=== PATIENT | male | born 1950 | race Caucasian/White ===

== ENCOUNTER 2020-03-06 19:56 | Observation (INO) | payer MEDICARE ==
[2020-03-06] MEDS ORDERED: Iodixanol* (CONTRAST) 320 MG/ML 100 ML SDV IV ONE (22:20)
[2020-03-06 22:36] LABS: ABS Eosinophils 0.1 10^3/ul (0-0.6); ABS Lymphocytes 1.4 10^3/ul (1.0-4.8); ABS Monocytes 0.5 10^3/ul (0-0.8); ABS Neutrophils 3.8 10^3/ul (1.5-7.7); Eosinophil % 1.7 %; Hematocrit 41 % (42-52); Hemoglobin 14.4 g/dL (14.0-18.0); Lymphocyte % 23.3 %; Mean Corpuscular HGB Conc 35 g/dL (31-36); Mean Corpuscular Hemoglobin 33 pg (27-31); Mean Corpuscular Volume 96 fL (80-94); Mean Platelet Volume 8.3 fL (7.4-10.4); Platelet Count 177 10^3/uL (150-450); Red Cell Distribution Width 13 % (10-15); White Blood Count 5.9 10^3/uL (3.5-10.8)
[2020-03-06 22:51] LABS: INR 1.04 (0.82-1.09)
[2020-03-06 22:52] LABS: Albumin 4.3 g/dL (3.2-5.2); Albumin/Globulin Ratio 1.6 (1-3); BUN/Creatinine Ratio 20.9 (8-20); Calcium 9.4 mg/dL (8.6-10.3); EGFR Non-African American 88.4 (>60); Globulin 2.7 g/dL (2-4); Potassium 3.9 mmol/L (3.5-5.0); Total Bilirubin 0.5 mg/dL (0.2-1.0)
--- NOTE | 2020-03-06 22:59 | ED ---
Neurological HPI - HPI Summary HPI Summary: 69 year old M presenting to [facility] via private car with a chief complaint of visual and speech impairment since earlier today. Patient states that at 1700, patient experienced a sharp dizzy spell after going on a routine 3-5 mile walk, during which he felt normal. Shortly after, patient began using his computer to look at [employer] numbers when he began seeing flashes primarily the right side of his vision. He states that his right side also looked strange. Patient states that he could not read 4-5 digit numbers but was not clear as to if it was due to a visual issue or if the sun was getting in his way. His symptoms subsided after 20 minutes. Afterwards, patient was having a conversation when he could not remember the name of the road near his house. Patient states that his symptoms subsided afterwards. Later, when the patient was talking to his after dinner, he was not able to find the words to describe what he wanted to talk about. Patients states that the patient could not find the word that he wanted to use, however he was not talking gibberish and seemed to understand what she was saying. Patients speech returned to normal afterwards. Patient denies difficulty with ambulation and extremity weakness. Patient reports experiencing a headache earlier. Patient denies having a Hx of stroke or seizure but has a history of neuropathy. Home Medications Medication Instructions Recorded Confirmed Type Cholecalciferol TAB* [Vitamin D 1,000 unit PO DAILY 03/07/20 03/07/20 History TAB*] Iron 18 mg PO DAILY 03/07/20 03/07/20 History Multivitamin [Multivitamins] 1 cap PO DAILY 03/07/20 03/07/20 History - History of Current Complaint Chief Complaint: EDHeadache Stated Complaint: INCREASED DIZZY SPELLS/VISON CHANGES PER PT Time Seen by Provider: 03/06/20 22:00 Hx Obtained From: Patient Onset/Duration: Started hours ago Current Severity: Mild Pain Intensity: 3 Pain Scale Used: 0-10 Numeric Character: Dizzy - Sharp dizzy spell., Sharp - Sharp dizzy spell., Impaired Speech, Visual Changes - Could not read 4-5 digit numbers. Associated Signs and Symptoms: Positive: Visual Changes, Headache, Impaired Speech. Negative: Weakness - Allergy/Home Medications Allergies/Adverse Reactions: Allergies Allergy/AdvReac Type Severity Reaction Status Date / Time No Known Allergies Allergy Verified 04/30/13 15:15 Home Medications: Home Medications Aspirin 81 mg CHEW TAB* 81 mg PO DAILY #30 tab.chew 03/07/20 [Rx] Atorvastatin* [Lipitor 20 MG*] 20 mg PO 2100 #30 tab 03/07/20 [Rx] Cholecalciferol TAB* [Vitamin D TAB*] 1,000 unit PO DAILY 03/07/20 [History Confirmed 03/07/20] Clopidogrel TAB* [Plavix TAB*] 75 mg PO DAILY #21 tab 03/07/20 [Rx] Iron 18 mg PO DAILY 03/07/20 [History Confirmed 03/07/20] Multivitamin [Multivitamins] 1 cap PO DAILY 03/07/20 [History Confirmed 03/07/20 ] PMH/Surg Hx/FS Hx/Imm Hx Endocrine/Hematology History: Denies: Hx Diabetes Cardiovascular History: Denies: Hx Hypertension, Hx Pacemaker/ICD Musculoskeletal History: Denies: Hx Rheumatoid Arthritis, Hx Osteoporosis Sensory History: Denies: Hx Hearing Aid Neurological History: Reports: Hx Peripheral Neuropathy Psychiatric History: Denies: Hx Panic Disorder - Cancer History Cancer Type, Location and Year: SKIN 2009 - Surgical History Surgery Procedure, Year, and Place: RT KNEE, ATHLETIC PUBALGIA SURGERY, APPENDECTOMY, RT HAND INDEX FINGER MISSING THE LAST JOINT Infectious Disease History: No Infectious Disease History: Denies: Traveled Outside the [place] in Last 30 Days - Family History Known Family History: Positive: Other - Prostate cancer, throat cancer, breast cancer, [place]. - Social History Alcohol Use: Daily Alcohol Amount: 1 drink/day Substance Use Type: Reports: None Smoking Status (MU): Never Smoked Tobacco Review of Systems Positive: Other - Sharp dizzy spell. Positive: Other - Visual changes, patient experienced flashes. Neurological/Mental Status: Other - Patient unable to read large numbers and had trouble remember the name of a road near his house. Positive: Headache. Negative: Weakness - Patient denies trouble walking, moving arms, moving legs. All Other Systems Reviewed And Are Negative: Yes Physical Exam - Summary Physical Exam Summary: Appearance: Well-appearing, Well-nourished, lying in bed comfortably Skin: Warm, dry, no obvious rash Eyes: sclera anicteric, no conjunctival pallor HENT: mucous membranes moist, pharynx appears normal Neck: Supple, nontender Respiratory: Clear to auscultation, no signs of respiratory distress Cardiovascular: Normal S1, S2. No murmurs. Normal distal pulses in tibial and radial bilaterally. Abdomen: Soft, nontender, normal active bowel sounds present Musculoskeletal: Normal, Strength/ROM Intact Neurological: A&Ox3, awake and alert, mentation is normal, speech is fluent and appropriate, Level of consciousness nml. The patient is alert and oriented. Cranial nerves are grossly intact. Gaze is conjugate and without nystagmus. Peripheral vision is intact to confrontation. There are no gross sensory abnormalities to light touch. There is no truncal or fine motor ataxia. Gait is normal. GCS 15. NIH 0. Psychiatric: affect is normal, does not appear anxious or depressed Triage Information Reviewed: Yes Vital Signs On Initial Exam: Initial Vitals Temp Pulse Resp BP Pulse Ox 98 F 56 18 114/73 100 03/06/20 20:11 03/06/20 20:11 03/06/20 20:11 03/06/20 20:11 03/06/20 20:11 Vital Signs Reviewed: Yes - Henri Coma Scale Best Eye Response: 4 - Spontaneous Best Motor Response: 6 - Obeys Commands Best Verbal Response: 5 - Oriented Coma Scale Total: 15 Procedures - Sedation Patient Received Moderate/Deep Sedation with Procedure: No Diagnostics - Vital Signs Vital Signs Temp Pulse Resp BP Pulse Ox 03/06/20 22:00 47 18 99 03/06/20 21:50 42 98 03/06/20 21:49 43 126/77 98 03/06/20 20:11 98 F 56 18 114/73 100 - Laboratory Lab Results: Lab Results 03/06/20 03/06/20 03/06/20 Range/Units 22:25 22:25 22:25 WBC 5.9 (3.5-10.8) 10^3/uL RBC 4.30 (4.18-5.48) 10^6 /uL Hgb 14.4 (14.0-18.0) g/dL Hct 41 L (42-52) % MCV 96 H (80-94) fL MCH 33 H (27-31) pg MCHC 35 (31-36) g/dL RDW 13 (10-15) % Plt Count 177 (150-450) 10^3/uL MPV 8.3 (7.4-10.4) fL Neut % (Auto) 65.1 % Lymph % (Auto) 23.3 % Sanders % (Auto) 9.1 % Eos % (Auto) 1.7 % Baso % (Auto) 0.8 % Absolute Neuts (auto) 3.8 (1.5-7.7) 10^3/ul Absolute Lymphs (auto) 1.4 (1.0-4.8) 10^3/ul Absolute Monos (auto) 0.5 (0-0.8) 10^3/ul Absolute Eos (auto) 0.1 (0-0.6) 10^3/ul Absolute Basos (auto) 0.0 (0-0.2) 10^3/ul Absolute Nucleated RBC 0.0 10^3/ul Nucleated RBC % 0.0 INR (Anticoag Therapy) 1.04 (0.82-1.09) Sodium 135 (135-145) mmol/L Potassium 3.9 (3.5-5.0) mmol/L Chloride 99 L (101-111) mmol/L Carbon Dioxide 30 (22-32) mmol/L Anion Gap 6 (2-11) mmol/L BUN 18 (6-24) mg/dL Creatinine 0.86 (0.67-1.17) mg/dL Est GFR ( Amer) 107.0 (>60) Est GFR (Non-Af Amer) 88.4 (>60) BUN/Creatinine Ratio 20.9 H (8-20) Glucose 92 (70-100) mg/dL Calcium 9.4 (8.6-10.3) mg/dL Total Bilirubin 0.50 (0.2-1.0) mg/dL AST 26 (13-39) U/L ALT 21 (7-52) U/L Alkaline Phosphatase 69 (34-104) U/L Total Protein 7.0 (6.4-8.9) g/dL Albumin 4.3 (3.2-5.2) g/dL Globulin 2.7 (2-4) g/dL Albumin/Globulin Ratio 1.6 (1-3) Result Diagrams: 03/07/20 06:16 03/07/20 06:16 Lab Statement: Any lab studies that have been ordered have been reviewed, and results considered in the medical decision making process. - CT Brain CT CT Interpretation Completed By: Radiologist Summary of CT Findings: IMPRESSION: No acute intracranial abnormality. This imaging report has been reviewed and interpreted by Dr. Booker. Head CTA CT Interpretation Completed By: Radiologist Summary of CT Findings: Neck CTA Impression: No acute abnormality. Head CTA Impression: No large vessel stenosis or occlusion. This imaging report has been reviewed and interpreted by Dr. Booker. - EKG 2248 Cardiac Rate: NL EKG Rhythm: Sinus Rhythm Summary of EKG Findings: NSR at 44 BPM, P waves, QRS complex, and T waves are within normal limits, T waves and intervals are normal, no ischemic changes. No STEMI. This is a normal EKG. ED physician has reviewed and interpreted this EKG. 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: Both Correctly Best Gaze (Only Horizontal Eye Movement): Normal Visual Field Testing: No Visual Loss Facial Paresis-Pt to Smile & Close Eyes or Grimace Symmetry: Normal/Symmetrical Motor Function - Right Arm: No Drift-Holds 10 Seconds Motor Function - Left Arm: No Drift-Holds 10 Seconds Motor Function - Right Leg: No Drift-Holds 10 Seconds Motor Function - Left Leg: No Drift-Holds 10 Seconds Limb Ataxia-Must be out of Proportion to Weakness Present: Absent Sensory (Use Pinprick to Test Arms/Legs/Trunk/Face): Normal Best Language (Describe Picture, Name Items): No Aphasia Dysarthria (Read Several Words): Normal Extinction and Inattention: No Abnormality Total Score: 0 Re-Evaluation - Re-Evaluation First Eval Re-Evaluation Time: 22:57 Comment: Dr. Booker spoke to Dr. Medina regarding the care of the patient. Dr. Medina agreed to look at the patients imaging reports. Second Eval Re-Evaluation Time: 23:03 Comment: Dr. Booker spoke to Dr. Fatima regarding the care of the patient. Dr. Fatima agrees to admit the patient. Course/Dx - Course Course Of Treatment: 69 year old M presents to [facility] with a chief complaint of intermittent visual and speech impairment since earlier today. Patients symptoms include sharp dizzy spells, flashes in his sight, and inability to associate words with his thoughts. Patient denies trouble walking, moving arms, moving legs, but reports experiencing a headache earlier. Code andriy was called. Patient had a normal neuro exam, GCS 15, NIH 0. Patient has a 41 Hct, 96 MCV, 33 MCH, 99 Chloride, 20.9 BUN/Creatinine ratio. Patient received 650 mg acetaminophen, 81 mg aspirin, 5000 units of heparin, and 4 mg of ondansetron. Patients Brain CT showed the following: No acute intracranial abnormality. Patients Head/Neck CTA showed the following: Neck CTA Impression: No acute abnormality. Head CTA Impression: No large vessel stenosis or occlusion. Patients EKG at 2248 showed the following: NSR at 44 BPM, P waves, QRS complex, and T waves are within normal limits, T waves and intervals are normal, no ischemic changes. No STEMI. Dr. Booker discussed the imaging reports of the patient with Dr. Medina and discussed the care of the patient with Dr. Fatima , who agreed to admit the patient. - Diagnoses Provider Diagnoses: Transient ischemic attack (TIA) During the Visit The Following Alert/Code Occurred: Code Allen - Della Alejandro called at 2214. - Physician Notifications Discussed Care Of Patient With: Kirit Medina Time Discussed With Above Provider: 22:57 Instructed by Provider To: Other - Dr. Booker spoke to Dr. Medina regarding the care of the patient. Dr. Medina agreed to look at the patients imaging reports. 2202 Dr. Booker spoke to Dr. Fatima regarding the care of the patient. Dr. Fatima agrees to admit the patient. - Critical Care Time Critical Care Statement: Critical care time is provided exclusive of any time spent performing procedures. Discharge ED - Sign-Out/Discharge Documenting (check all that apply): Patient Departure - [place] [facility] [place] All imaging exams completed and their final reports reviewed: Yes - Discharge Plan Condition: Stable Disposition: ADMITTED TO [facility] - Billing Disposition and Condition Condition: STABLE Disposition: Admitted to [facility] - Attestation Statements Document Initiated by Scribe: Yes Documenting Scribe: Chloe Moscoso Provider For Whom Scribe is Documenting (Include Credential): Pa Booker MD Scribe Attestation: Chloe Georges, scribed for Pa Booker MD on 03/07/20 at 2058. Scribe Documentation Reviewed: Yes Provider Attestation: The documentation as recorded by the scribe, Chloe Madison and Alessandro Moscoso accurately reflects the service I personally performed and the decisions made by me, Pa Booker MD Status of Joyce Document: Viewed
[2020-03-06] MEDS ORDERED: Acetaminophen TAB* 325 MG PO PRN (23:40)
[2020-03-06] MEDS ORDERED: Ondansetron INJ* 2 MG/ML VIAL IV PRN (23:40)
[2020-03-07] MEDS: Aspirin 81 mg CHEW TAB* 81 MG TAB.CHEW PO SCH ×2 (01:02→07:29)
--- NOTE | 2020-03-07 01:57 | HP ---
CC: Dr. Holm; Dr. Becerra* HISTORY AND PHYSICAL: DATE OF ADMISSION: 03/06/20 PRIMARY CARE PROVIDER: Dr. Holm. CONSULTING NEUROLOGIST: Dr. Becerra. ATTENDING PHYSICIAN WHILE IN THE HOSPITAL: Dr. Ying Fatima* (report being dictated by Sukh Keys NP). CHIEF COMPLAINT: 1. Trouble with words. 2. Visual disturbance. 3. Lightheadedness. HISTORY OF PRESENT ILLNESS: Mr. Bonilla is a 69-year-old male patient with a history of GERD, anemia, and idiopathic neuropathy, who has had issues longstanding for some time, feeling lightheaded particularly after he eats which he has been told that this is attributed to most likely blood pressure issues. However, he has noticed over the last 10 days he has been having more frequent episodes of feeling dizzy and lightheaded. He does not describe it as spinning. He describes it as feeling lightheaded. He did note that he went for a walk today, and after the walk, he did feel lightheaded and felt somewhat dizzy, but did not faint or have loss of consciousness. He also noted that later after the walk he went home, he was sitting on his computer, and while sitting there, he was having trouble. He was actually navigating stocks and having trouble seeing the numbers on the screen. He attributed this to maybe that the sun was bright and that is why he could not see. He felt that there was more trouble focusing out of the right eye. He described it as some of the numbers that were on the screen were missing that were clearly there. He says that these 2 episodes lasted about 5 to 10 minutes. Later on this evening, he had an episode when he was talking to his where he could not come up with the road that he has lived on. He also was having trouble coming up with his words. He does occasionally have trouble finding words, but is usually able to recognize it. His noted that he was talking gibberish and was not making sense. The patient says that he knew what he wants to say, but he just could not get the words out. This episode lasted 5 to 10 minutes. He is now back to baseline, but the and the patient were concerned given that he had 3 distinct episodes today and they came into the ER to be evaluated. He denied having any facial drooping, weakness to arm or leg, numbness or tingling with the exception that he has chronic numbness and tingling to the lower extremities from neuropathy, but nothing new and no unilateral deficits. He came into the ER, a code andriy was called. TPA was not given because he was back to his baseline, but because of his symptoms, it was recommended by [facility] that the patient be admitted for further evaluation and TIA workup. After these episodes he did have a dull headache that he described as a pressure involving his entire head that was about 2/10. It is not resolved. PAST MEDICAL HISTORY: Significant for: 1. GERD. 2. Anemia. 3. Neuropathy. PAST SURGICAL HISTORY: He has had: 1. Hernia repair. 2. Appendectomy. 3. Knee surgery. MEDICATIONS: He denied actually home medications. He does not take aspirin. He does take a multivitamin only. ALLERGIES TO MEDICATIONS: No known drug allergies. FAMILY HISTORY: His mother at the age of 86. Father had a history of a pacemaker. SOCIAL HISTORY: He does not smoke. He occasionally drinks alcohol. He is . Surrogate decision maker is his . REVIEW OF SYSTEMS: There is no documented fever. He denied having any significant weight change. There is no double vision. He denies having any ear discharge. There is no rhinorrhea. No sore throat. No thyroid enlargement. Denies having any chest pain. There is no orthopnea, no nocturnal dyspnea. There is no abdominal pain. No nausea, no vomiting. No dysuria, no frequency. No seizure. There was no loss of consciousness. Review of 14 systems completed, all others are negative. PHYSICAL EXAMINATION GENERAL: At this time, Mr. Bonilla is a 69-year-old male patient. He appears to be well nourished, well developed. He is sitting on the ED stretcher. He does not appear to be in any acute distress. VITAL SIGNS: Blood pressure 126/77, pulse 43. He does have baseline bradycardia. His O2 sat is 98% on room air, temperature 98.0, respirations 18. HEENT: Head: Atraumatic, normocephalic. Eyes: EOMs intact. Sclerae anicteric, not pale. Throat: Oral mucosa appears to be moist. No oropharyngeal erythema. NECK: Supple. LUNGS: Clear to auscultation bilaterally. No wheezes, rales, or rhonchi. HEART: Heart sounds S1, S2. He had a regular rate and rhythm. No murmurs, rubs, or gallops. ABDOMEN: Soft, flat, nontender. Bowel sounds are present. EXTREMITIES: Pulses were 2+ throughout. No peripheral edema. NEUROLOGIC: He is awake. He is alert. His speech is clear. Tongue is midline. Cranial nerves II through XII are intact. Visual perkins were full to confrontation. Visual acuity was intact as well. His tongue was midline. No facial drooping was noted. Sensation intact to all tracts of the face. He had [id number] and [id number] intact bilaterally. He had 5/5 strength in the upper and lower extremities distally and proximally. Repetition and naming were intact. He had no slurring of his speech. There was no evidence of aphasia at this point. Rapid alternative movements were intact at this point. He had no gross focal deficits. No drift was noted, and again, no unilateral weakness. SKIN: Intact. DIAGNOSTIC STUDIES/LAB DATA: Labs revealed a WBC of 5.9, RBC of 4.30, hemoglobin of 14.4, hematocrit of 41, platelet count of 177. INR 1.04. Sodium 135, potassium 3.9, chloride 99, bicarb 30, BUN 18, creatinine 0.86, glucose 92 , calcium 9.4. Total bili 0.5, AST 26, ALT 21, alk phos 69, albumin 4.3. He had a brain CT obtained today, which revealed no acute intracranial abnormality. He had a head CTA obtained, which revealed no large vessel stenosis or occlusion. Neck CTA showed no acute abnormality. He had an EKG obtained today, which did show sinus bradycardia, rate of 44, no ST elevations or T-wave inversions were noted. There is an old EKG from 2012. His heart rate there was 41. Again appears to be unchanged. Old medical records reviewed. ASSESSMENT AND PLAN: Mr. Bonilla is a 69-year-old male patient coming into the ED today with 3 distinct episodes lasting 5 to 10 minutes of trouble with speech with 1 episode of lightheaded and dizziness with his first episode and he had another episode of visual disturbance. There was concern for possible transient ischemic attack. He will be admitted under observation status for: 1. Transient ischemic attack. At this point, the [facility] was consulted. They recommended transient ischemic attack workup. I am going to be getting an MRI. I will also place him on telemetry. We will start him on aspirin for now, he is aspirin naive. We can consider adding Plavix, but I would like to have recommendations from Neurology first. We will get a lipid panel and an A1c and we will continue to follow him closely. TPA was not given because his symptoms resolved, he is back to his baseline. We will get frequent neuro checks. We will get an echo with bubble study. He already had a CTA of the head and neck. 2. Neuropathy. Continue with supportive care. 3. Gastroesophageal reflux disease. Not an active issue. I will continue to follow. 4. DVT prophylaxis: He is moderate risk. I have ordered heparin subcu. 5. Code status: Full code. 6. Fluids, electrolytes, nutrition: He can have a heart-healthy diet. TIME SPENT: The time spent on the admission was approximately 60 minutes, greater than half the time was spent [id number] with the patient obtaining my history of physical; the other half of the time was spent going over the plan of care with the patient and implementing plan of care. I did discuss the plan of care with my attending Dr. Fatima; she is in agreement. SUKH KEYS NP [id number]/[facility] #: [id number] RODRIGO
[2020-03-07] MEDS: Heparin VIAL(*) 5000 UNITS/ML VIAL (FIVE THOUSAND) SUBCUT SCH ×2 (05:34→14:01)
[2020-03-07 06:35] LABS: ABS Basophils 0.1 10^3/ul (0-0.2); ABS Eosinophils 0.1 10^3/ul (0-0.6); ABS Lymphocytes 1.5 10^3/ul (1.0-4.8); ABS Monocytes 0.4 10^3/ul (0-0.8); ABS Neutrophils 2.4 10^3/ul (1.5-7.7); Eosinophil % 2.7 %; Hematocrit 38 % (42-52); Hemoglobin 13.2 g/dL (14.0-18.0); Lymphocyte % 32.9 %; Mean Corpuscular HGB Conc 35 g/dL (31-36); Mean Corpuscular Hemoglobin 33 pg (27-31); Mean Corpuscular Volume 95 fL (80-94); Mean Platelet Volume 8.3 fL (7.4-10.4); Platelet Count 164 10^3/uL (150-450); Red Blood Count 4.01 10^6 /uL (4.18-5.48); Red Cell Distribution Width 13 % (10-15); White Blood Count 4.5 10^3/uL (3.5-10.8)
[2020-03-07 06:46] LABS: BUN/Creatinine Ratio 23.3 (8-20); Calcium 8.8 mg/dL (8.6-10.3); EGFR African American 129.3 (>60); EGFR Non-African American 106.8 (>60); HDL Cholesterol 41.9 mg/dL; Potassium 3.7 mmol/L (3.5-5.0)
[2020-03-07 06:49] LABS: Activated Partial Thrombo Time 33.3 seconds (26.0-38.0); INR 1.06 (0.82-1.09)
[2020-03-07] MEDS ORDERED: Lorazepam PYXIS KEY PRN (07:46)
[2020-03-07] MEDS ORDERED: LORazepam INJ* 2 MG/ML 1 ML VIAL IV PUSH ONE (07:46)
[2020-03-07] MEDS ORDERED: Clopidogrel TAB* 75 MG PO SCH (09:00)
--- NOTE | 2020-03-07 09:24 | ECHO ---
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 History: Anemia. Conclusions Summary: - Left ventricle: Systolic function is normal. The estimated ejection fraction is 50-55%. Wall motion is normal; there are no regional wall motion abnormalities. - Right atrium: The atrium is mildly to moderately dilated. - Atrial septum: No defect or patent foramen ovale is identified by color or agitated saline contrast. Bubble study was negative - Mitral valve: There is trace regurgitation. - Aortic valve: There is trace regurgitation. - No previous echocardiogram available. Study data: Transthoracic echocardiogram. Procedure: Transthoracic echocardiography was performed. Image quality was good. A bubble study was performed. Complete 2D, spectral Doppler, and color flow Doppler. Location: Bedside. Patient status: Inpatient. Patient room number: 438. Rhythm: Bradycardia. Findings Left ventricle: The cavity size is normal. Wall thickness is mildly increased. Systolic function is normal. The estimated ejection fraction is 50-55%. Wall motion is normal; there are no regional wall motion abnormalities. There is no consistent Doppler evidence of clinically significant diastolic dysfunction. Right ventricle: The cavity size is normal. Systolic function is normal. Left atrium: The atrium is normal in size. Right atrium: The atrium is mildly to moderately dilated. Atrial septum: No defect or patent foramen ovale is identified by color or agitated saline contrast. Bubble study was negative Mitral valve: The leaflets are mildly thickened. There is no evidence of stenosis. There is trace regurgitation. Aortic valve: The valve is trileaflet. The leaflets are normal thickness. There is no evidence of stenosis. There is trace regurgitation. Tricuspid valve: The leaflets are normal thickness. There is no evidence of stenosis. There is trace regurgitation. Pulmonic valve: The leaflets are normal thickness. There is no evidence of stenosis. There is no significant regurgitation. Aorta: Ascending aorta: The ascending aorta is poorly visualized. The aortic root appears normal. The aortic arch appears normal. Pericardium: There is no significant pericardial effusion. Pulmonary arteries: Systolic pressure is within the normal range. Systemic veins: Inferior vena cava: The vessel is dilated. There is (>= 50%) respiratory change in the IVC dimension. Measurements Left ventricle Value Ref Mitral valve Value Ref ELOISE, LAX 4.3 cm 4.2 - 5.8 Peak E 0.56 m/sec ------- ESD, LAX 3.2 cm 2.5 - 4.0 Peak A 0.43 m/sec ------- FS, LAX 27 % 25 - 43 Decel time 322 ms ------- PW, ED, LAX (H) 1.2 cm 0.6 - 1.0 Peak E/A ratio 1.3 ------- E', lat juan, TDI 14.9 cm/sec >=10.0 E/e', lat juan, 4 Pulmonic valve Value Ref TDI Peak v, S 0.51 m/sec ------- E', med juna, TDI 11.2 cm/sec >=7.0 Peak grad, S 1.0 mm Hg ------- E/e', med juan, 5 TDI Tricuspid valve Value Ref E', avg, TDI 13.1 cm/sec TR peak v 2 m/sec &lt ;=2.8 E/e', avg, TDI 4 <=14 Peak RV-RA grad, S 16 mm Hg ------- LVOT Value Ref Aortic root Value Ref Peak ahsan, S 0.89 m/sec Root diam 3.7 cm <4.1 Mean grad, S 2 mm Hg Root max diam/bsa, 1.9 cm/m^2 1.3 - ED 2.1 Ventricular septum Value Ref IVS, ED (H) 1.2 cm 0.6 - 1.0 Aortic arch Value Ref Arch diam 2.9 cm ------- Right ventricle Value Ref Arch diam/bsa 1.5 cm/m^2 ------- ELOISE, LAX 3.1 cm ELOISE minor ax, A4C 3.1 cm 1.9 - 3.5 Decending aorta Value Ref mid Ta peak ahsan 0.57 m/sec ------- Pressure, S 19 mm Hg Pulmonary artery Value Ref Left atrium Value Ref Pressure, S 18.0 mm Hg ------- AP dim, ES 3.40 cm 3.00 - 4.00 Inferior vena cava Value Ref ML dim, A4C 4.0 cm Diam 2.8 cm ------- SI dim, A4C 5.6 cm Vol/bsa, ES, A/L 28 ml/m^2 16 - 34 Pulmonary veins Value Ref Peak v, S 0.47 m/sec ------- Right atrium Value Ref Peak v, D 0.29 m/sec ------- SI dim, ES (H) 6.0 cm 3.4 - 5.3 Peak S/D ratio 1.6 ------- ML dim, ES, A4C (H) 5.3 cm 2.6 - 4.4 A rev duration 132 ms ------- Estimated RAP 3 mm Hg Aortic valve Value Ref Juan diam, ED 2.2 cm Peak v, S 1.08 m/sec VTI, S 28.0 cm Mean grad, S 3.0 mm Hg Peak grad, S 5.0 mm Hg Legend: (L) and (H) chayito values outside specified reference range. Prepared and electronically signed by Victor Manuel Lancaster MD 03/07/2020 09:24
[2020-03-07 09:46] LABS: Folate > 20.00 ng/mL (>3.99)
--- NOTE | 2020-03-07 11:23 | CONS ---
CC: Dr. Holm; Dr. Harvey Becerra CONSULTATION REPORT: DATE OF CONSULT: 03/07/20 PRIMARY CARE PROVIDER: Dr. Holm. REASON FOR CONSULTATION: TIA like symptoms including some lightheadedness and vision symptoms as well as some speech difficulties. HISTORY OF PRESENT ILLNESS: Mr. Bonilla is a very nice 69-year-old gentleman who has a history of idiopathic neuropathy, followed by Dr. Muñoz in the past, also followed by Dr. Henry Munroe in [facility], appears to be an idiopathic-type neuropathy. He also has a history of GERD and anemia. Denies history of hypertension or diabetes. In fact, he states that his pulse and blood pressure are often low. He notes a history of lightheaded episodes that date back years, sometimes happen after he eats but sometimes happen after he walks. These last for just a few seconds and then resolve on their own. He notes that he feels lightheaded but no room spinning or imbalance. They are not associated with any palpitations or chest pain or shortness of breath. These have been ongoing but on the last several weeks, he has noticed a couple of these episodes which seem more frequent. He went for a walk yesterday and he had one of those episodes again very short lasting, no other symptoms with it , no loss of consciousness. When he got home, he states that he got on the computer and he started to have trouble seeing some numbers. He could look at the numbers and see part of the number, he noticed that the right side of his vision seemed to be some bright sparkling lights. Again, this lasted for just a few minutes and then resolved on its own. He felt like it was out of both eyes but it was on the right side. He had another episode like this and then it resolved. An hour or so later, he was at dinner and he initially had some difficulty sort of thinking about what he wants to say but then he forgot the name of the road that goes by his house and then a few minutes later, he started to have some difficulty producing words and his apparently said that he was not making sense and speaking gibberish. He remembers knowing what he wanted to say but he just could not get the words out. Again this episode lasted for a few minutes and then resolved on its own. At that time, there was no reported facial droop. At the time of his vision symptoms, there was no reported facial numbness or tingling, hearing loss, headaches, although he states he did develop a headache afterwards, but it was mild in nature. He has no history of migraine headaches. There was no history of vision loss at that time. He has had no persistent vision loss. He had no focal numbness, tingling , or weakness beyond the chronic numbness and tingling that he has in his feet. He had no falls. He otherwise has been in his usual state of health. He states that he has had no recent fevers, chills, nausea, vomiting, diarrhea, or constipation. He has had no chest pain, shortness of breath, or palpitations. In fact, he never has had palpitations that he is aware of. In the ER, he had a CT of the head on presentation that showed no acute abnormalities. Films reviewed and agree. He also had a CT angiogram of the head and neck, which showed no large vessel disease in the brain and no carotid disease, no vertebral artery disease. Based on these findings, though he was admitted to the hospital, he was started on aspirin and Plavix in the ER and sent to the floor for additional workup. PAST MEDICAL HISTORY: As noted above. He has no history of prior strokes or heart attacks. PAST SURGICAL HISTORY: Includes knee surgery, appendectomy, and hernia repair. MEDICATIONS: He is not on any medications at home other than a multivitamin. He states he has tried gabapentin in the past for his neuropathy, but it has not helped. ALLERGIES: No known drug allergies. FAMILY HISTORY: His father of throat cancer but was a heavy drinker and smoker. He also had a history of pauses and bradycardia and had a pacemaker placed. His mother at the age of 86. SOCIAL HISTORY: Never a smoker. He drank heavily in the past. Most recently he drinks about 6 beers a week. He is and his surrogate decision maker is his . REVIEW OF SYSTEMS: Review of systems in 14-organ systems as noted above, otherwise negative. PHYSICAL EXAM: Vital Signs: Temperature of 97.4, heart rate has been in the 40s, respiratory rate 16 to 20, O2 saturation 98% to 100%, blood pressure has been on the low end 115/72 to 100/71 to 103/67. Telemetry, there were some pauses overnight and bradycardia but no other arrhythmias noted. In general, he is a well- nourished, well-developed, thin gentleman, in no acute distress. He is sitting in his hospital bed. He is awake, pleasant, well dressed, well groomed. HEENT: He is normocephalic, atraumatic. Sclerae are anicteric. Mucous membranes are moist. Oropharynx is clear. Nares are patent. Neck is supple. No thyromegaly. No carotid bruits. No meningismus. Chest: Clear to auscultation bilaterally. Cardiovascular: Bradycardic. Regular rhythm. No murmurs, gallops, or rubs. Abdomen: Nontender. Extremities: No clubbing, cyanosis, or edema. His skin is warm and dry. There are no lesions appreciated. Neurologic Exam: He is awake, alert, and oriented x3. His speech is fluent. There is no dysarthria. Repetition is intact. Recall of recent and remote events is intact. Vocabulary is intact. His mood is concerned. Affect, mood congruent. Cranial Nerves: Pupils are equally round and reactive to light and accommodation. Extraocular muscles are intact with no nystagmus, no diplopia. No ptosis was noted. Visual perkins are full to confrontation. His facial sensation is intact to light touch throughout. Facial symmetry is intact. There is no droop or weakness. Hearing is intact bilaterally. His palate raises symmetrically. Tongue is midline. Motor Exam: He is 5/5 throughout. Tone and bulk are both good. He has no drift in the upper or lower extremities. Wqqnjm-hv-jtgm and rapid alternating movements are intact with no past-pointing. No dysdiadochokinesia or dysmetria. There is no tremor at rest with posture or action. Sensation: He has loss of all modalities to the midfoot bilaterally with improvement as in the leg; this is chronic in nature. There is no pain associated with this. Otherwise, there is no neglect or other sensory loss. DTRs are 2+ at the biceps, brachioradialis, triceps; 2+ at the patella; and absent at the ankles, equivocal Babinski's. Gait: He is able to stand. Romberg is minimal sway with eyes open and close. His gait is normal with good stride, good base. There is no shuffling. There is no wide base. DIAGNOSTIC STUDIES/LAB DATA: Lab work includes a hemoglobin of 13.2, hematocrit of 38, MCV of 95, MCH of 33, RBC of 4.01. INR of 1.06, PTT of 33.3. Triglyceride 100, cholesterol 160, LDL 98, HDL 41.9. BUN/creatinine ratio is 23.3. Chloride is 99. Imaging as noted above in the HPI. ASSESSMENT AND PLAN: Mr. Bonilla is a very nice 69-year-old gentleman who has a history of gastroesophageal reflux disease and some anemia; idiopathic neuropathy, followed at the [facility] in the past; history of bradycardia that he is aware of, who has had long-standing episodes of very brief dizziness that is associated with lightheadedness but no room spinning, that occur spontaneously sometimes after eating or after walking. He notes no palpitations with those. He also yesterday had an episode of some visual disturbance with possible scintillating scotoma on the right visual field and loss of vision as well on the right. He had some difficulty thinking about what he wanted to say at one point and then he had some difficulty producing words and talking gibberish. All of these lasted for a few minutes each and then resolved. He came to the hospital. Differential includes TIA/stroke, hypotensive episodes with/without arrhythmias, complicated migraines (no history ) or seizures (no history). 1. Concern for possible transient ischemic attacks: CT angiogram of the head and neck was done, which showed no large vessel disease in the carotids, vertebral arteries or intracranially. [facility] was apparently contacted yesterday in the ER and instructed a transient ischemic attack workup. He was started on aspirin and Plavix was added as well and since his admission, he has had no further episodes. Telemetry overnight showed some bradycardia with occasional pauses. The differential for this certainly does include transient ischemic attacks, initially concern for crescendo transient ischemic attack, although he has not had any more of it. He is now on aspirin and Plavix. I do not think we need to further anticoagulate him at this time. The plan will be to get an MRI of his brain to look for any embolic phenomenon, which might suggest an embolic source. Also, we are going to get an echocardiogram with bubble. My suspicion for a cardiac source is low but certainly we will evaluate that. I think we can hold on a IZABELA at this point. The plan will be to check some additional labs including B12, folate, TSH. I will go ahead and check some labs for neuropathy as well as including an SPEP. We will monitor him on telemetry and as an outpatient. Suspicion for migraine and seizures is very low and I do not think we need an EEG at this time. --He will go home on dual-antiplatelet therapy, aspirin 81 mg a day and Plavix 75 mg a day for 21 days and then drop back to 81 mg of aspirin. I would start him on a statin, maybe 20 mg of atorvastatin at this point and have him continue to monitor his lipids. We do not have evidence of stroke but maintaining an LDL less than 100 would be important. He needs to watch carefully for any evidence of developing hypertension or diabetes. He is a nonsmoker and he drinks socially. He will need a 30-day event monitor to look for any evidence of atrial fibrillation. We might consider a 3-year monitor given his age as well as his episodes of dizziness, certainly his bradycardia needs to be followed 2. Bradycardia. This appears to be a long-standing issue something that needs to be followed closely. He could be having paroxysmal arrhythmias causing some of his symptoms. Again, recommend telemetry and then a 30-day event monitor with the possibility of a 3-year event monitor. Cardiology followup is suggested as well. 3. Neuropathy. This is long-standing. I will check some labs today. I told him that I will certainly be happy to follow him in clinic. He has seen a neurologist in the past. It is not painful, so no treatment at this time. 4. He has a history of gastroesophageal reflux disease, which is stable. 5. DVT prophylaxis. The plan will be to do these studies today. If everything looks okay, I think it is okay for him to go home with dual-antiplatelet. We will need to get him set up for 30-day monitor quickly. I would like to see him back in my office with a tele visit in 6 to 8 weeks. He should return to the ER immediately should he have any new stroke-like symptoms and I would arrange for him to have a cardiac evaluation as well. Assuming his workup shows no obvious issues, I will sign off for now and plan to see him in followup. Please contact me with any questions or concerns. Thank you for the opportunity to participate in the care of this very interesting patient. [id number]/[facility] #: [id number] MTDD
[2020-03-07 15:36] VITALS: BP 91/62
[2020-03-07] MEDS ORDERED: Atorvastatin* 20 MG TAB PO SCH (21:00)
--- NOTE | 2020-03-08 11:47 | DS ---
Amended report to enter cosigning physician. CC: Dr. Juan Holm; Dr. Harvey Becerra; Dr. Mg Neal* DISCHARGE SUMMARY: DATE OF ADMISSION: 03/07/20 DATE OF DISCHARGE: 03/07/20 PROVIDER: Dejuan Enriquez NP PRIMARY CARE PROVIDER: Juan Holm MD ATTENDING PHYSICIAN WHILE IN THE HOSPITAL: Genoveva Hines MD* (dictated by Dejuan Enriquez NP) PRIMARY DIAGNOSES: Near syncope and bradycardia. SECONDARY DIAGNOSES: Anemia and neuropathy. STUDIES WHILE IN THE HOSPITAL: 1. On 03/06/20, brain CT, no acute intracranial abnormality. 2. On 03/06/20, head CTA, no acute abnormality. 3. ECG, sinus bradycardia, rate 44, no ST elevations or T wave inversions. 4. On 03/06/20, transthoracic echocardiogram, left ventricle systolic function is normal, the estimated ejection fraction is 50% to 55%, wall motion is normal. There are no regional wall motion abnormalities. Right atrium: Atrium is mildly to moderately dilated. Atrial septum: No defect or patent foramen ovale is identified by color or agitated saline contrast. Bubble study is negative. Mitral valve: There is trace regurgitation. Aortic valve: There is trace regurgitation. No previous echocardiogram available. 5. On 03/07/20, MRI brain without contrast: No convincing infarct, subtle left greater than right DWI hyperintensity along the corticospinal tracts, likely related to physiologic orientation of the white matter tracts, it is clinically equivocal. Consider 1 month followup imaging to document stability. Mild chronic small vessel ischemic disease is likely, mastoid effusions. CONSULTATION WHILE IN THE HOSPITAL: Dr. Harvey Becerra from Neurology. HISTORY OF PRESENT ILLNESS AND HOSPITAL COURSE: Mr. Bonilla is a 69-year-old male with history of GERD, anemia, idiopathic neuropathy that presented to the ER on 03/06/20 with multiple episodes of dizziness, lightheadedness, and difficulty finding words and visual disturbance, episodes lasted 5 to 8 minutes. Upon presentation, the patient was asymptomatic. While in the ER, the patient had CT scan and CTA scan, both were negative for acute injury. CTA did show, however, there was likely mild chronic small vessel ischemic disease. Throughout the hospital stay, the patient did remain asymptomatic; however, [facility] suggested the patient be admitted for TIA workup. The patient also received transthoracic echocardiogram, which showed normal EF of 50% to 55% without significant abnormalities. In the setting of questionable TIA, Dr. Harvey Becerra was consulted. His assessment findings are more consistent with a cardiac origin of the patient's complaints related to his longstanding bradycardia. Dr. Becerra's suggestions are to discharge the patient when medically stable on DAPT with aspirin 81 mg and Plavix 75 mg daily for 21 days, then convert to aspirin alone. Dr. Becerra also suggested the patient should have 30 days cardiac event recorder and be followed by Cardiology. The patient should also follow up with Dr. Becerra in his office in 6 to 8 weeks. Mr. Bonilla, being without further episodes or further complaints, is medically stable for discharge at this time. PHYSICAL EXAM: Mr. Bonilla is alert and oriented x4 without any facial asymmetries. Tongue is midline. Pupils are PERRL. Foreign Policy Officer are equal. Lower extremity strength is equal bilaterally. Pedal flexion and extension equal bilaterally. Cranial nerves II through XII are intact. Visual perkins were full to confrontation. Visual acuity was intact as well. He had hmnori-oa-fwoy and kvlz-iz-fzwq intact bilaterally. 5/5 strength in upper and lower extremities distally and proximally. No slurring of speech. No evidence of aphasia presently. Rapid alternating movements were intact at this point. No gross focal defects. Head is atraumatic, normocephalic. EOMs intact. Sclerae anicteric. Oral mucosa appears moist. Oropharynx is clear. Neck is supple. Lungs: Clear to auscultation. No wheezes, rales, or rhonchi. S1, S2 heart sounds. Regular rate and rhythm. No murmurs, rubs, or gallops. Abdomen is soft , flat, nontender. Bowel sounds are present in all 4 quadrants. Pulses were 2+ throughout. No peripheral edema. Skin is intact. Physical exam is otherwise benign. Mr. Bonilla is stable for discharge. Most recent vital signs, 97.4 temperature, pulse 52, respiratory rate 16, 100% on room air, and 91/62 blood pressure. DISCHARGE MEDICATIONS: Added Medications: 1. Aspirin 81 mg 2 tabs 1 by mouth daily. 2. Atorvastatin 20 mg by mouth q.h.s. 3. Clopidogrel 75 mg p.o. daily x21 days. Continued Medications: 1. Vitamin D tabs 1000 units p.o. daily. 2. Iron tablets 18 mg p.o. daily. 3. Multivitamin 1 capsule daily. DISCHARGE PLAN: Mr. Bonilla will be discharged to home. Activity, as tolerated. A referral for [facility] for 30-day cardiac event monitor and Cardiology followup is established for 03/13/20. He will follow up with Dr. Becerra from Neurology, on or about 04/14/20, call for an appointment. Follow up with Dr. Juan Holm, call for followup appointment. I have added daily aspirin 81 mg, which you will continue indefinitely or as directed by sparmaker. You will also start taking Plavix 75 mg by mouth daily; however, this will be discontinued after 21 days unless directed differently by a sparmaker. You will also continue taking atorvastatin to control your cholesterol levels. Be sure to return to the ER if you develop any further symptoms of dizziness, blurred vision, numbness, tingling, confusion, difficulty speaking, chest pain, shortness of breath, or any other concerning symptoms. DISCHARGE CONDITION: Stable. DISCHARGE DISPOSITION: Home. This is a summarized report of the patient's medical history and hospital course. For further details, please see entire medical record. TIME SPENT: Approximately 45 minutes on this discharge. DEJUAN ENRIQUEZ NP [id number]/[facility] #: [id number] RODRIGO
[2020-03-10 17:31] LABS: Albumin 3.3 g/dL (3.4-4.7); Albumin/Globulin Ratio 1.15; Total Protein(PEP) 6.1 g/dL (6.3 - 7.9)
== END 2020-03-07 16:40 | disposition home or self-care (01) ==
LOC: ED 19:56 → MEDTELE 03-07 00:13
PROVIDERS: ADMIT Hospitalist; ATTEND Internal Medicine
DX: R55 Syncope and collapse (principal); R00.1 Bradycardia, unspecified; D64.9 Anemia, unspecified; G62.9 Polyneuropathy, unspecified; K21.9 Gastro-esophageal reflux disease without esophagitis; R51 Headache; Z79.82 Long term (current) use of aspirin; Z79.899 Other long term (current) drug therapy; Z85.828 Personal history of other malignant neoplasm of skin
CPT/HCPCS: 36415; 70450; 70496; 70498; 70551; 80048; 80053; 80061; 82607; 82746; 83036; 84155; 84165; 85025; 85610; 85730; 93005; 93306; 96372; 96374; 99284; A9270-GY; G0378; J1644; J2060; Q9967